=== PATIENT | male | born 1945 | race Caucasian/White ===

== ENCOUNTER 2018-03-26 12:11 | Emergency (ER) | payer MEDICARE, BC ==
[~2018-03-26] VITALS: Ht 165.1 cm; Wt 68.0 kg
[2018-03-26] MEDS ORDERED: ACETAMINOPHEN ES 500 MG TABLET ONE (12:27)
[2018-03-26] MEDS: LIDOCAINE HCL 1% 20 ML VIAL TP ONE (12:28)
[2018-03-26] MEDS: ACETAMINOPHEN ES 500 MG TABLET PO ONE (12:28)
--- NOTE | 2018-03-26 12:30 | NUR ---
PT IS IN ROOM #2B. DR ESCOBAR EVALUATED THE PT.
--- NOTE | 2018-03-26 13:36 | NUR ---
PT WAS D/C TO HOME. D/C INSTRUCTIONS GIVEN TO THE PT. NO BLEEDING. DRESSING IS INTACT.
[2018-03-26 13:38] VITALS: BP 142/78
== END 2018-03-26 13:39 | disposition home or self-care (01) ==
LOC: ER 12:16
DX: S61.411A Laceration without foreign body of right hand, initial encounter (principal); E78.5 Hyperlipidemia, unspecified; W01.0XXA Fall on same level from slipping, tripping and stumbling without subsequent striking against object, initial encounter; Y92.89 Other specified places as the place of occurrence of the external cause; Y99.8 Other external cause status; Y93.89 Activity, other specified
CPT/HCPCS: 12002; 99283; A4663; A9150; J3490